=== PATIENT | male | born 1990 | race Caucasian/White ===

== ENCOUNTER 2023-12-31 19:32 | Emergency (ER) | payer SELFPAY ==
[2023-12-31 19:42] VITALS: BP 148/93
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
== END 2023-12-31 20:30 | disposition home or self-care (01) ==
LOC: EMR 19:32
PROVIDERS: EMERGENCY PHYSICIAN Student in an Organized Health Care Education/Training Program
DX: S06.0X0A Concussion without loss of consciousness, initial encounter (principal); S00.511A Abrasion of lip, initial encounter; V43.52XA Car driver injured in collision with other type car in traffic accident, initial encounter; Y92.410 Unspecified street and highway as the place of occurrence of the external cause; R03.0 Elevated blood-pressure reading, without diagnosis of hypertension; Z87.820 Personal history of traumatic brain injury
CPT/HCPCS: 99282